=== PATIENT | female | born 1970 | race Caucasian/White ===

== ENCOUNTER 2022-12-29 10:43 | Inpatient (IN) | payer OTHER, SELFPAY ==
[~2022-12-29 10:43] MED LIST: Iopamidol-370 76% 500 ML MDV (1 ML CHARGE) ONE
[2022-12-29] MEDS ORDERED: Ondansetron PF 4 MG/2 ML Vial ONE (12:06)
[2022-12-29] MEDS ORDERED: Morphine 4 MG/ML VIAL ONE ×3 (12:06→15:44)
[2022-12-29 12:07] LABS: #Basophils 0.1 thou/uL (0.0-0.2); #Eosinphils 0.3 thou/uL (0.0-0.7); #Monocytes 0.7 thou/uL (0.11-0.59); #Neutrophils 7.7 thou/uL (1.40-6.50); %Basophils 1.1 % (0.0-1.0); %Eosinophils 2.4 % (0.0-10.0); %Lymphocytes 16.3 % (21.0-51.0); %Monocytes 6.7 % (0.0-10.0); %Neutrophils 72.9 % (42.0-75.0); Hematocrit 27.9 % (36.0-47.0); Hemoglobin 8.5 g/dL (12.0-16.0); Mean Corpuscular HGB CONC 30.5 g/dL (32.0-36.0); Mean Corpuscular Hemoglobin 28.2 pg (27.0-31.0); Mean Corpuscular Volume 92.7 fl (78.0-98.0); Mean Platelet Volume 8.5 fL (7.4-10.4); Platelet Count 732 10x3/uL (130-400); Red Blood Cell (RBC) Count 3.01 mill/uL (4.20-5.40); White Blood Cell (WBC) Count 10.5 10x3/uL (4.8-10.8)
[2022-12-29 12:36] LABS: ALT (SGPT) 7 U/L (8-55); AST (SGOT) 16 U/L (5-34); Albumin 2.8 g/dL (3.5-5.0); Alkaline Phosphatase 445 U/L (40-110); Anion Gap 9 mmol/L (10-20); BUN (Urea Nitrogen) 10 mg/dL (9.8-20.1); Bilirubin, Total 0.2 mg/dL (0.2-1.2); Calc. Creatinine Clearance 0 mL/min (70-130); Calcium 8.4 mg/dL (7.8-10.44); Carbon Dioxide 22 mmol/L (22-29); Chloride 107 mmol/L (98-107); Estimated GFR 84; Globulin 3.9 g/dL (2.4-3.5); Glucose 93 mg/dL (70-105); Lipase 20 U/L (8-78); Potassium 4.4 mmol/L (3.5-5.1); Protein, Total 6.7 g/dL (6.0-8.3); Sodium 134 mmol/L (136-145)
[2022-12-29] MEDS ORDERED: Ondansetron PF 4 MG/2 ML Vial IVP PRN (14:21)
[2022-12-29] MEDS ORDERED: Ondansetron ODT 4 MG TAB PO PRN (14:21)
[2022-12-29] MEDS ORDERED: Acetaminophen 325 MG TAB PO PRN (14:21)
[2022-12-29] MEDS ORDERED: Metoclopramide HCl 10 MG/2 ML VIAL IVP SCH (14:54)
[2022-12-29 16:15] LABS: Bacteria/HPF None Seen HPF (None Seen); Bilirubin Negative (Negative); Blood, Urine 3+ (Negative); CAUTI Indications for Culture Dysuria,urgency,freq; Clarity Clear (Clear); Glucose, Urine (Dipstick) Normal (Negative); Ketone, Urine Negative (Negative); Leukocyte 250 Leu/uL (Negative); Nitrite 1+ (Negative); Protein, Urine (Dipstick) 50 mg/dL (Neg-Trace); RBC/HPF 21-50 HPF (0-3); Urobilinogen Normal mg/dL (Less than 2); WBC/HPF Greater than 50 HPF (0-3); pH, Urine 6.5 (5.0-9.0)
[2022-12-29 16:17] LABS: Specific Gravity, Urine 1.044 (1.002-1.036)
[2022-12-29 16:20] LABS: Urine Culture Reflex Yes Yes
[2022-12-29] MEDS ORDERED: cefTRIAXone\\ROCEPHIN 2 GM in Sodium Chloride 0.9% 100 ML IVPB SCH (17:30)
[2022-12-29] MEDS ORDERED: Metoclopramide HCl 10 MG/2 ML VIAL ONE (18:27)
[2022-12-29] MEDS ORDERED: cefTRIAXone (ROCEPHIN) 2 GM VIAL ONE (18:27)
[2022-12-29] MEDS: Sodium Chloride 0.9% 1,000 ML IV SCH (18:37)
[2022-12-29] MEDS: Metoclopramide HCl 10 MG/2 ML VIAL IVP SCH (20:37)
[2022-12-29] MEDS: Pantoprazole 40 MG VIAL IVP SCH (20:37)
[2022-12-29] MEDS: HYDROcodone/Acetaminophen 10/325 mg Tablet PO PRN (20:38)
[2022-12-30] MEDS: Morphine 4 MG/ML VIAL SLOW IVP PRN ×5 (00:24→22:15)
[2022-12-30] MEDS: HYDROcodone/Acetaminophen 10/325 mg Tablet PO PRN ×3 (04:28→17:57)
[2022-12-30 05:53] LABS: #Basophils 0.1 thou/uL (0.0-0.2); #Eosinphils 0.1 thou/uL (0.0-0.7); #Monocytes 1.1 thou/uL (0.11-0.59); #Neutrophils 9.4 thou/uL (1.40-6.50); %Eosinophils 0.4 % (0.0-10.0); %Lymphocytes 13.9 % (21.0-51.0); %Monocytes 8.7 % (0.0-10.0); %Neutrophils 75.4 % (42.0-75.0); Hematocrit 27.7 % (36.0-47.0); Hemoglobin 8.2 g/dL (12.0-16.0); Mean Corpuscular HGB CONC 29.6 g/dL (32.0-36.0); Mean Corpuscular Hemoglobin 28.2 pg (27.0-31.0); Mean Corpuscular Volume 95.2 fl (78.0-98.0); Mean Platelet Volume 8.6 fL (7.4-10.4); Platelet Count 732 10x3/uL (130-400); RBC Distribution Width 19.4 % (11.5-14.5); Red Blood Cell (RBC) Count 2.91 mill/uL (4.20-5.40); White Blood Cell (WBC) Count 12.4 10x3/uL (4.8-10.8)
[2022-12-30 06:15] LABS: Anion Gap 15 mmol/L (10-20); BUN (Urea Nitrogen) 9 mg/dL (9.8-20.1); Calc. Creatinine Clearance 89 mL/min (70-130); Calcium 8.2 mg/dL (7.8-10.44); Carbon Dioxide 21 mmol/L (22-29); Chloride 105 mmol/L (98-107); Estimated GFR 81; Glucose 88 mg/dL (70-105); Potassium 4.2 mmol/L (3.5-5.1); Sodium 137 mmol/L (136-145)
[2022-12-30] MEDS: Sodium Chloride 0.9% 1,000 ML IV SCH ×2 (07:41→10:30)
[2022-12-30] MEDS: Metoclopramide HCl 10 MG/2 ML VIAL IVP SCH ×2 (10:32→22:15)
[2022-12-30] MEDS: Pantoprazole 40 MG VIAL IVP SCH ×2 (10:39→21:39)
[2022-12-30] MEDS ORDERED: Bisacodyl 5 MG TAB PO SCH (15:30)
[2022-12-30] MEDS ORDERED: Metoclopramide HCl 10 MG/2 ML VIAL IVP SCH (15:30)
[2022-12-30] MEDS: Polyethylene Glycol 3350 17 GM Packet PO SCH ×2 (21:42→21:46)
[2022-12-31] MEDS: HYDROcodone/Acetaminophen 10/325 mg Tablet PO PRN ×3 (00:32→17:25)
[2022-12-31] MEDS ORDERED: Cyclobenzaprine 10 MG TAB PO SCH (00:45)
[2022-12-31] MEDS: Morphine 4 MG/ML VIAL SLOW IVP PRN ×5 (03:09→21:28)
[2022-12-31 06:21] LABS: #Basophils 0.1 thou/uL (0.0-0.2); #Eosinphils 0.2 thou/uL (0.0-0.7); #Monocytes 0.9 thou/uL (0.11-0.59); %Basophils 1.3 % (0.0-1.0); %Eosinophils 1.8 % (0.0-10.0); %Lymphocytes 15.1 % (21.0-51.0); %Monocytes 9.2 % (0.0-10.0); Hematocrit 26.4 % (36.0-47.0); Mean Corpuscular HGB CONC 30.3 g/dL (32.0-36.0); Mean Corpuscular Hemoglobin 28.4 pg (27.0-31.0); Mean Corpuscular Volume 93.6 fl (78.0-98.0); Mean Platelet Volume 8.5 fL (7.4-10.4); Platelet Count 639 10x3/uL (130-400); RBC Distribution Width 19.8 % (11.5-14.5); Red Blood Cell (RBC) Count 2.82 mill/uL (4.20-5.40); White Blood Cell (WBC) Count 9.7 10x3/uL (4.8-10.8)
[2022-12-31] MEDS: Metoclopramide HCl 10 MG/2 ML VIAL IVP SCH ×3 (06:30→21:28)
[2022-12-31 06:41] LABS: Anion Gap 14 mmol/L (10-20); BUN (Urea Nitrogen) 9 mg/dL (9.8-20.1); Calc. Creatinine Clearance 84 mL/min (70-130); Calcium 8.1 mg/dL (7.8-10.44); Carbon Dioxide 19 mmol/L (22-29); Chloride 107 mmol/L (98-107); Estimated GFR 76; Glucose 103 mg/dL (70-105); Potassium 3.8 mmol/L (3.5-5.1); Sodium 136 mmol/L (136-145)
[2022-12-31] MEDS ORDERED: SODIUM CHLORIDE 0.9% IVPB SCH ×3 (07:00→07:15)
[2022-12-31] MEDS ORDERED: PALONOSETRON HCL 0.05 MG/ML 5 ML VIAL IVP SCH (07:00)
[2022-12-31] MEDS ORDERED: DEXAMETHASONE IVPB SCH (07:00)
[2022-12-31] MEDS ORDERED: Famotidine/PF 20 MG in Sodium Chloride 0.9% 50 ML IVPB SCH (07:00)
[2022-12-31] MEDS ORDERED: DIPHENHYDRAMINE IVPB SCH (07:00)
[2022-12-31] MEDS ORDERED: CARBOPLATIN IVPB SCH (07:15)
[2022-12-31] MEDS ORDERED: PACLITAXEL IVPB SCH (07:15)
[2022-12-31] MEDS ORDERED: diphenhydrAMINE 50 MG in Sodium Chloride 0.9% 50 ML IVPB SCH (07:30)
[2022-12-31] MEDS ORDERED: Dexamethasone 20 MG in Sodium Chloride 0.9% 50 ML IVPB SCH (07:30)
[2022-12-31] MEDS: Pantoprazole 40 MG VIAL IVP SCH ×2 (09:03→21:28)
[2022-12-31] MEDS: Polyethylene Glycol 3350 17 GM Packet PO SCH ×2 (09:04→21:28)
[2022-12-31] MEDS: Bisacodyl 5 MG TAB PO SCH (09:04)
[2022-12-31 11:11] VITALS: BMI 24.6
[2022-12-31] MEDS ORDERED: diphenhydrAMINE 25 MG in Sodium Chloride 0.9% 50 ML IVPB SCH (13:00)
[2023-01-01] MEDS: HYDROcodone/Acetaminophen 10/325 mg Tablet PO PRN ×3 (00:50→21:29)
[2023-01-01] MEDS: Cyclobenzaprine 10 MG TAB PO PRN ×2 (03:27→18:17)
[2023-01-01] MEDS: Metoclopramide HCl 10 MG/2 ML VIAL IVP SCH ×3 (05:07→21:30)
[2023-01-01 05:31] LABS: #Monocytes 0.1 thou/uL (0.11-0.59); #Neutrophils 6.6 thou/uL (1.40-6.50); %Basophils 0.1 % (0.0-1.0); %Lymphocytes 8.7 % (21.0-51.0); %Monocytes 1.7 % (0.0-10.0); %Neutrophils 88.3 % (42.0-75.0); Hematocrit 26.9 % (36.0-47.0); Mean Corpuscular HGB CONC 29.7 g/dL (32.0-36.0); Mean Corpuscular Hemoglobin 28.3 pg (27.0-31.0); Mean Corpuscular Volume 95.1 fl (78.0-98.0); Mean Platelet Volume 8.8 fL (7.4-10.4); Platelet Count 603 10x3/uL (130-400); RBC Distribution Width 20.1 % (11.5-14.5); Red Blood Cell (RBC) Count 2.83 mill/uL (4.20-5.40); White Blood Cell (WBC) Count 7.4 10x3/uL (4.8-10.8)
[2023-01-01 05:54] LABS: ALT (SGPT) Less than 7 U/L (8-55); AST (SGOT) 16 U/L (5-34); Albumin 2.5 g/dL (3.5-5.0); Alkaline Phosphatase 393 U/L (40-110); Anion Gap 17 mmol/L (10-20); BUN (Urea Nitrogen) 10 mg/dL (9.8-20.1); Bilirubin, Total 0.2 mg/dL (0.2-1.2); Calc. Creatinine Clearance 72 mL/min (70-130); Carbon Dioxide 17 mmol/L (22-29); Chloride 107 mmol/L (98-107); Estimated GFR 65; Glucose 152 mg/dL (70-105); Potassium 4.2 mmol/L (3.5-5.1); Protein, Total 6.5 g/dL (6.0-8.3); Sodium 137 mmol/L (136-145)
[2023-01-01] MEDS ORDERED: PEGFILGRASTIM-JMDB 6 MG/0.6 ML SYRINGE SQ SCH (06:00)
[2023-01-01] MEDS: Polyethylene Glycol 3350 17 GM Packet PO SCH ×2 (08:21→21:30)
[2023-01-01] MEDS: Bisacodyl 5 MG TAB PO SCH (08:21)
[2023-01-01] MEDS: Pantoprazole 40 MG VIAL IVP SCH ×2 (08:21→21:30)
[2023-01-01] MEDS: Morphine 4 MG/ML VIAL SLOW IVP PRN ×3 (08:26→19:37)
[2023-01-02] MEDS: Morphine 4 MG/ML VIAL SLOW IVP PRN ×4 (02:53→20:54)
[2023-01-02] MEDS: Cyclobenzaprine 10 MG TAB PO PRN ×2 (02:55→17:49)
[2023-01-02] MEDS: HYDROcodone/Acetaminophen 10/325 mg Tablet PO PRN ×4 (04:31→23:22)
[2023-01-02 05:05] LABS: #Basophils 0.1 thou/uL (0.0-0.2); #Monocytes 0.6 thou/uL (0.11-0.59); #Neutrophils 34.4 thou/uL (1.40-6.50); %Basophils 0.2 % (0.0-1.0); %Lymphocytes 3.9 % (21.0-51.0); %Monocytes 1.5 % (0.0-10.0); %Neutrophils 92.3 % (42.0-75.0); Hematocrit 25.3 % (36.0-47.0); Hemoglobin 7.9 g/dL (12.0-16.0); Mean Corpuscular HGB CONC 31.2 g/dL (32.0-36.0); Mean Corpuscular Hemoglobin 28.9 pg (27.0-31.0); Mean Corpuscular Volume 92.7 fl (78.0-98.0); RBC Distribution Width 20.5 % (11.5-14.5); Red Blood Cell (RBC) Count 2.73 mill/uL (4.20-5.40); White Blood Cell (WBC) Count 37.3 10x3/uL (4.8-10.8)
[2023-01-02 05:15] LABS: Platelet Count 501 10x3/uL (130-400)
[2023-01-02 05:34] LABS: ALT (SGPT) 8 U/L (8-55); AST (SGOT) 34 U/L (5-34); Albumin 2.4 g/dL (3.5-5.0); Alkaline Phosphatase 368 U/L (40-110); Anion Gap 16 mmol/L (10-20); BUN (Urea Nitrogen) 15 mg/dL (9.8-20.1); Bilirubin, Total 0.3 mg/dL (0.2-1.2); Calc. Creatinine Clearance 83 mL/min (70-130); Carbon Dioxide 16 mmol/L (22-29); Chloride 107 mmol/L (98-107); Estimated GFR 76; Globulin 3.8 g/dL (2.4-3.5); Glucose 94 mg/dL (70-105); Potassium 3.5 mmol/L (3.5-5.1); Protein, Total 6.2 g/dL (6.0-8.3); Sodium 135 mmol/L (136-145)
[2023-01-02] MEDS: Metoclopramide HCl 10 MG/2 ML VIAL IVP SCH ×3 (05:54→20:54)
[2023-01-02] MEDS: Bisacodyl 5 MG TAB PO SCH (08:33)
[2023-01-02] MEDS: Polyethylene Glycol 3350 17 GM Packet PO SCH ×2 (08:33→20:54)
[2023-01-02] MEDS: Pantoprazole 40 MG VIAL IVP SCH ×2 (08:34→20:54)
[2023-01-03] MEDS: Morphine 4 MG/ML VIAL SLOW IVP PRN ×5 (00:44→22:37)
[2023-01-03] MEDS: Cyclobenzaprine 10 MG TAB PO PRN ×3 (00:49→20:53)
[2023-01-03 06:01] LABS: Hematocrit 25.8 % (36.0-47.0); Mean Corpuscular Hemoglobin 29.3 pg (27.0-31.0); Mean Corpuscular Volume 94.5 fl (78.0-98.0); Mean Platelet Volume 9.1 fL (7.4-10.4); Platelet Count 450 10x3/uL (130-400); RBC Distribution Width 20.8 % (11.5-14.5); Red Blood Cell (RBC) Count 2.73 mill/uL (4.20-5.40); White Blood Cell (WBC) Count 40.4 10x3/uL (4.8-10.8)
[2023-01-03] MEDS: Metoclopramide HCl 10 MG/2 ML VIAL IVP SCH ×3 (06:09→20:53)
[2023-01-03] MEDS: HYDROcodone/Acetaminophen 10/325 mg Tablet PO PRN ×3 (06:09→19:10)
[2023-01-03 06:14] LABS: Delete Auto Diff?? YES; Manual Diff?? YES
[2023-01-03 06:27] LABS: Anion Gap 13 mmol/L (10-20); BUN (Urea Nitrogen) 16 mg/dL (9.8-20.1); Calc. Creatinine Clearance 90 mL/min (70-130); Calcium 8.3 mg/dL (7.8-10.44); Carbon Dioxide 21 mmol/L (22-29); Chloride 106 mmol/L (98-107); Estimated GFR 84; Glucose 88 mg/dL (70-105); Potassium 3.3 mmol/L (3.5-5.1); Sodium 137 mmol/L (136-145)
[2023-01-03 06:47] LABS: Anisocytosis SLIGHT = 6-15 cells HPF (0-5); Band 10 % (5-11); Eosinophils 1 % (0-10); Hypochromia SLIGHT = 6-15 cells HPF (0-5); Large Platelets 1.7 % (0-5); Lymphocytes 3 % (21-51); Metamyelocyte 3 % (0-0); Myelocyte 1 % (0-0); Neutrophil 82 % (42-75); Platelet Adequacy Comment Platelets Increased; Polychromasia SLIGHT = 2-3 cells HPF (0-2); Total Cell Count 119
[2023-01-03] MEDS: Pantoprazole 40 MG VIAL IVP SCH ×2 (09:25→20:52)
[2023-01-03] MEDS: Bisacodyl 5 MG TAB PO SCH (11:53)
[2023-01-03] MEDS: Polyethylene Glycol 3350 17 GM Packet PO SCH ×2 (11:54→20:53)
[2023-01-03] MEDS: Milk Of Magnesia 30 ML UDCUP PO SCH (20:52)
[2023-01-04] MEDS: Morphine 4 MG/ML VIAL SLOW IVP PRN ×3 (02:44→09:26)
[2023-01-04] MEDS: HYDROcodone/Acetaminophen 10/325 mg Tablet PO PRN ×2 (02:45→09:25)
[2023-01-04 05:19] LABS: Hematocrit 24.2 % (36.0-47.0); Hemoglobin 7.7 g/dL (12.0-16.0); Mean Corpuscular HGB CONC 31.8 g/dL (32.0-36.0); Mean Corpuscular Hemoglobin 29.1 pg (27.0-31.0); Mean Platelet Volume 9.3 fL (7.4-10.4); Platelet Count 408 10x3/uL (130-400); RBC Distribution Width 20.5 % (11.5-14.5); Red Blood Cell (RBC) Count 2.65 mill/uL (4.20-5.40); White Blood Cell (WBC) Count 41.3 10x3/uL (4.8-10.8)
[2023-01-04 05:21] LABS: Delete Auto Diff?? YES; Manual Diff?? YES; Mean Corpuscular Volume 91.3 fl (78.0-98.0)
[2023-01-04 05:46] LABS: Anion Gap 14 mmol/L (10-20); BUN (Urea Nitrogen) 14 mg/dL (9.8-20.1); Calc. Creatinine Clearance 92 mL/min (70-130); Calcium 8.3 mg/dL (7.8-10.44); Carbon Dioxide 19 mmol/L (22-29); Chloride 106 mmol/L (98-107); Estimated GFR 86; Glucose 93 mg/dL (70-105); Potassium 3.9 mmol/L (3.5-5.1); Sodium 135 mmol/L (136-145)
[2023-01-04 05:59] LABS: Anisocytosis SLIGHT = 6-15 cells HPF (0-5); Band 14 % (5-11); CellaVision Operator ID LAB.CLH1; Hypochromia SLIGHT = 6-15 cells HPF (0-5); Large Platelets 3.4 % (0-5); Lymphocytes 3 % (21-51); Monocytes 2 % (0-10); Neutrophil 81 % (42-75); Platelet Adequacy Comment Platelets Increased; Polychromasia SLIGHT = 2-3 cells HPF (0-2); Total Cell Count 118
[2023-01-04] MEDS: Metoclopramide HCl 10 MG/2 ML VIAL IVP SCH (06:01)
[2023-01-04] MEDS ORDERED: Furosemide 20 MG TAB PO SCH (09:00)
[2023-01-04] MEDS: Bisacodyl 5 MG TAB PO SCH (09:32)
[2023-01-04] MEDS: Milk Of Magnesia 30 ML UDCUP PO SCH (09:33)
[2023-01-04] MEDS: Polyethylene Glycol 3350 17 GM Packet PO SCH (09:33)
[2023-01-04] MEDS: Pantoprazole 40 MG VIAL IVP SCH (09:33)
[2023-01-04] MEDS ORDERED: oxyCODONE/Acetaminophen 5 mg/325 mg Tablet PO PRN (11:03)
[2023-01-04] MEDS ORDERED: Electrolyte Replacement Protocol 1 EACH FS SCH (11:15)
[2023-01-04] MEDS: Metoclopramide HCl 10 MG TAB PO SCH ×3 (12:30→21:29)
[2023-01-04] MEDS: oxyCODONE/Acetaminophen 5 mg/325 mg Tablet PO PRN ×2 (13:16→18:12)
[2023-01-04] MEDS: Furosemide 20 MG/2 ML VIAL SLOW IVP SCH (13:17)
[2023-01-04] MEDS ORDERED: Milk Of Magnesia 30 ML UDCUP PO PRN (17:09)
[2023-01-04] MEDS ORDERED: Morphine 4 MG/ML VIAL SLOW IVP PRN (18:21)
[2023-01-04] MEDS: Cyclobenzaprine 10 MG TAB PO PRN (21:30)
[2023-01-04] MEDS: Morphine ER 15 MG TAB PO SCH (22:10)
[2023-01-05] MEDS: oxyCODONE/Acetaminophen 5 mg/325 mg Tablet PO PRN ×4 (00:08→17:22)
[2023-01-05] MEDS: Furosemide 20 MG/2 ML VIAL SLOW IVP SCH ×2 (00:08→11:47)
[2023-01-05] MEDS: Metoclopramide HCl 10 MG TAB PO SCH ×3 (06:12→16:10)
[2023-01-05 06:52] LABS: Hematocrit 25.6 % (36.0-47.0); Hemoglobin 7.8 g/dL (12.0-16.0); Mean Corpuscular HGB CONC 30.5 g/dL (32.0-36.0); Mean Corpuscular Hemoglobin 29.3 pg (27.0-31.0); Mean Corpuscular Volume 96.2 fl (78.0-98.0); Mean Platelet Volume 9.6 fL (7.4-10.4); Platelet Count 373 10x3/uL (130-400); RBC Distribution Width 20.8 % (11.5-14.5); Red Blood Cell (RBC) Count 2.66 mill/uL (4.20-5.40); White Blood Cell (WBC) Count 39.1 10x3/uL (4.8-10.8)
[2023-01-05 07:15] LABS: Anion Gap 16 mmol/L (10-20); BUN (Urea Nitrogen) 15 mg/dL (9.8-20.1); Calc. Creatinine Clearance 83 mL/min (70-130); Calcium 8.5 mg/dL (7.8-10.44); Carbon Dioxide 20 mmol/L (22-29); Chloride 104 mmol/L (98-107); Estimated GFR 76; Glucose 84 mg/dL (70-105); Magnesium 1.6 mg/dL (1.6-2.6); Potassium 3.6 mmol/L (3.5-5.1); Sodium 136 mmol/L (136-145)
[2023-01-05 07:16] LABS: Delete Auto Diff?? YES; Manual Diff?? YES
[2023-01-05 07:47] LABS: Band 7 % (5-11); Burr Cells SLIGHT = 2-5 cells HPF (0-1); CellaVision Operator ID LAB.GE; Eosinophils 1 % (0-10); Giant Platelets 0.8 % (0-5); Hypochromia SLIGHT = 6-15 cells HPF (0-5); Large Platelets 1.7 % (0-5); Metamyelocyte 1 % (0-0); Neutrophil 91 % (42-75); Platelet Adequacy Comment Platelets Normal; Polychromasia SLIGHT = 2-3 cells HPF (0-2); Total Cell Count 118
[2023-01-05] MEDS ORDERED: Magnesium 2 GM/50 ML(in water) 2 GM in Premix Bag 1 BAG IVPB SCH (09:00)
[2023-01-05] MEDS ORDERED: Apixaban 5 MG TAB PO SCH (09:00)
[2023-01-05] MEDS: Morphine ER 15 MG TAB PO SCH (10:02)
[2023-01-05] MEDS: Cyclobenzaprine 10 MG TAB PO PRN (16:10)
[2023-01-05 18:13] VITALS: BP 128/71; TEMP 97.8
== END 2023-01-05 18:37 | disposition home or self-care (01) | DRG 755 ==
LOC: ERS 10:43 → OBSVTOIN 14:26 → ERHOLD 14:26 → SJJU 20:14
PROVIDERS: ADMIT Internal Medicine; ATTEND Internal Medicine Critical Care Medicine
DX: C56.3 Malignant neoplasm of bilateral ovaries (principal); C78.7 Secondary malignant neoplasm of liver and intrahepatic bile duct; C79.2 Secondary malignant neoplasm of skin; I82.403 Acute embolism and thrombosis of unspecified deep veins of lower extremity, bilateral; R18.8 Other ascites; R64 Cachexia; E86.0 Dehydration; F41.9 Anxiety disorder, unspecified; F32.A Depression, unspecified; D63.0 Anemia in neoplastic disease; D75.839 Thrombocytosis, unspecified; L73.2 Hidradenitis suppurativa; M62.838 Other muscle spasm; K59.00 Constipation, unspecified; Z88.5 Allergy status to narcotic agent; Z79.899 Other long term (current) drug therapy; Z87.891 Personal history of nicotine dependence; Z90.710 Acquired absence of both cervix and uterus; Z90.49 Acquired absence of other specified parts of digestive tract; C53.9 Malignant neoplasm of cervix uteri, unspecified; Z93.3 Colostomy status; Z68.24 Body mass index [BMI] 24.0-24.9, adult
CPT/HCPCS: 36415; 74019; 74177; 80048; 80053; 81001; 83605; 83690; 83735; 85025; 87040; 87086; 93970; 96361; 96374; 96375; 96376; C9113; J0696; J1100; J1200; J1650; J1940; J2270; J2405; J2765; J3475; J3490; J7030; J7050; J9045; J9267; Q5108; Q9967; S0028

== ENCOUNTER 2023-01-20 16:26 | Inpatient (IN) | payer OTHER ==
[2023-01-20] MEDS ORDERED: diphenhydrAMINE 25 MG CAP PO PRN (16:45)
[2023-01-20] MEDS ORDERED: chlorproMAZINE HCl 25 MG in Sodium Chloride 0.9% 50 ML IVPB PRN (16:45)
[2023-01-20] MEDS ORDERED: Haloperidol 1 MG TAB PO PRN (16:45)
[2023-01-20] MEDS ORDERED: Loperamide HCl 2 MG CAP PO PRN (16:45)
[2023-01-20] MEDS ORDERED: Scopolamine 1.5 mg/72 hour Patch TOP PRN ×2 (16:45)
[2023-01-20] MEDS ORDERED: Haloperidol Lactate 5 MG/ML VIAL SLOW IVP PRN (16:45)
[2023-01-20] MEDS ORDERED: Promethazine HCl 25 MG SUPP PR PRN (16:45)
[2023-01-20] MEDS ORDERED: Ondansetron ODT 4 MG TAB PO PRN (16:45)
[2023-01-20] MEDS ORDERED: Lorazepam 1 MG TAB PO PRN (16:45)
[2023-01-20] MEDS ORDERED: Hyoscyamine SL 0.125 MG TAB SL PRN (16:45)
[2023-01-20] MEDS ORDERED: Ondansetron PF 4 MG/2 ML Vial IVP PRN (16:45)
[2023-01-20] MEDS ORDERED: chlorproMAZINE HCl 50 MG/2 ML AMP IM PRN ×2 (16:45→16:48)
[2023-01-20] MEDS ORDERED: diphenhydrAMINE 50 MG/ML VIAL IVP PRN (16:45)
[2023-01-20] MEDS ORDERED: Lorazepam 2 MG/ML VIAL SLOW IVP PRN (16:45)
[2023-01-20] MEDS ORDERED: Ipratropium/Albuterol 3 ML NEB NEB PRN (16:55)
[2023-01-20 17:13] VITALS: BMI 25.7
[2023-01-20] MEDS: oxyCODONE 5 MG TAB PO PRN (17:47)
[2023-01-20] MEDS: Cyclobenzaprine 10 MG TAB PO PRN (17:47)
[2023-01-20 19:28] LABS: Hematocrit 24.4 % (36.0-47.0); Hemoglobin 8.1 g/dL (12.0-16.0); Platelet Count 324 10x3/uL (130-400)
[2023-01-20] MEDS: Morphine 4 MG/ML VIAL SLOW IVP PRN (19:52)
[2023-01-20] MEDS: Furosemide 40 MG/4 ML VIAL SLOW IVP SCH (21:29)
[2023-01-20] MEDS: Morphine ER 30 MG TAB PO SCH (21:31)
[2023-01-20] MEDS: Acetaminophen 500 MG TAB PO SCH (21:32)
[2023-01-20] MEDS: Milk Of Magnesia 30 ML UDCUP PO PRN (21:42)
[2023-01-21] MEDS: Morphine 4 MG/ML VIAL SLOW IVP PRN ×3 (03:46→18:10)
[2023-01-21] MEDS: Acetaminophen 500 MG TAB PO SCH (08:38)
[2023-01-21] MEDS: Furosemide 40 MG/4 ML VIAL SLOW IVP SCH ×2 (08:39→21:02)
[2023-01-21] MEDS: Morphine ER 30 MG TAB PO SCH ×2 (08:39→21:03)
[2023-01-21] MEDS: Cyclobenzaprine 10 MG TAB PO PRN (10:55)
[2023-01-21] MEDS ORDERED: Acetaminophen 325 MG TAB PO PRN (13:00)
[2023-01-21] MEDS: oxyCODONE 5 MG TAB PO PRN (15:33)
[2023-01-21] MEDS: Milk Of Magnesia 30 ML UDCUP PO PRN (21:02)
[2023-01-22] MEDS: Morphine 4 MG/ML VIAL SLOW IVP PRN ×2 (01:08→16:44)
[2023-01-22] MEDS: oxyCODONE 5 MG TAB PO PRN (07:12)
[2023-01-22] MEDS: Furosemide 40 MG/4 ML VIAL SLOW IVP SCH (10:05)
[2023-01-22] MEDS: Morphine ER 30 MG TAB PO SCH ×3 (10:06→19:53)
[2023-01-22] MEDS: Cyclobenzaprine 10 MG TAB PO PRN ×2 (11:36→20:01)
[2023-01-22] MEDS: Bumetanide 1 MG TAB PO SCH (15:21)
[2023-01-23] MEDS: oxyCODONE 5 MG TAB PO PRN (04:50)
[2023-01-23] MEDS: Morphine ER 30 MG TAB PO SCH ×3 (08:23→21:13)
[2023-01-23] MEDS: Bumetanide 1 MG TAB PO SCH ×2 (08:23→14:46)
[2023-01-23] MEDS: Morphine 4 MG/ML VIAL SLOW IVP PRN (13:28)
[2023-01-23] MEDS: Cyclobenzaprine 10 MG TAB PO PRN (21:12)
[2023-01-24] MEDS: Morphine ER 30 MG TAB PO SCH ×3 (09:16→20:12)
[2023-01-24] MEDS: Bumetanide 1 MG TAB PO SCH ×2 (09:17→15:55)
[2023-01-25] MEDS: Bumetanide 1 MG TAB PO SCH ×2 (08:30→15:38)
[2023-01-25] MEDS: Morphine ER 30 MG TAB PO SCH ×2 (08:30→15:38)
[2023-01-25 08:43] VITALS: BP 113/76; TEMP 98
[2023-01-25] MEDS: Cyclobenzaprine 10 MG TAB PO PRN (14:49)
== END 2023-01-25 16:35 | disposition hospice, home (50) | DRG 951 ==
LOC: CCU 16:26 → SJJU 16:46
PROVIDERS: ADMIT Family Medicine; ATTEND Family Medicine
DX: Z51.5 Encounter for palliative care (principal); J96.01 Acute respiratory failure with hypoxia; C78.7 Secondary malignant neoplasm of liver and intrahepatic bile duct; R04.2 Hemoptysis; R64 Cachexia; C56.3 Malignant neoplasm of bilateral ovaries; S42.209D Unspecified fracture of upper end of unspecified humerus, subsequent encounter for fracture with routine healing; R60.1 Generalized edema; Z66 Do not resuscitate; D64.9 Anemia, unspecified; N28.9 Disorder of kidney and ureter, unspecified; Z68.25 Body mass index [BMI] 25.0-25.9, adult; Z88.8 Allergy status to other drugs, medicaments and biological substances; Z88.5 Allergy status to narcotic agent
CPT/HCPCS: 36415; J1940; J2270